=== PATIENT | female | born 1995 | race Caucasian/White ===

== ENCOUNTER → 2016-09-17 | Outpatient (CLI) | payer OTHER ==
[~2016-09-17] MED LIST: ACID REDUCER 1150 MG PO; BIRTH CONTROL; IBU800 M1 PO
[2016-09-17 14:07] LABS: BASO % 0.3 % (0.0-1.0); EOS # 0.3 10*3/uL (0.0-0.4); EOS % 2.4 % (1.0-4.0); HEMATOCRIT 37.8 % (37.0-47.0); HEMOGLOBIN 12.4 g/dl (12.0-16.0); LYMPH # 3.4 10*3/uL (1.3-4.4); LYMPH % 28.3 % (27.0-41.0); MEAN CELL VOLUME 86.7 fl (81.0-99.0); MEAN CORPUSCULAR HGB 28.4 pg (27.0-31.0); MEAN CORPUSCULAR HGB CONC 32.8 g/dl (33.0-37.0); MEAN PLATELET VOLUME 9.6 fl (9.6-12.3); MONO # 0.5 10*3/uL (0.1-1.0); MONO % 3.8 % (3.0-9.0); NEUT # 7.8 10*3/uL (2.3-7.9); NEUT % 64.9 % (47.0-73.0); PLATELET COUNT AUTOMATED 272 10*3/uL (130-400); RED BLOOD COUNT 4.36 10*6/uL (4.10-5.10); RED CELL DISTRI WIDTH 14.4 % (0-14.5)
[2016-09-17 14:26] LABS: INTERNATIONAL NORM RATIO 0.9 (2.0-3.5); PROTHROMBIN TIME 9.8 SECONDS (9.0-12.4)
== END | disposition home or self-care (01) ==
LOC: LAB 12:37 → EDBD 12:37
PROVIDERS: Specialist
DX: J35.1 Hypertrophy of tonsils (principal)

== ENCOUNTER → 2016-09-24 | Day surgery (SDC) | payer OTHER ==
[~2016-09-24] VITALS: Ht 165.1 cm; Wt 128.4 kg
[~2016-09-24] MED LIST changes: +PERCOCET 325 MG1 TAB PO
--- NOTE | ~2016-09-24 | O ---
[place], [place] OPERATIVE NOTE NAME: NESTOR OCAMPO UNIT #: [id number] ROOM: DOCTOR: DYLAN NOVAK MD BIRTHDATE: [birth year] DATE: 09/24/16 PREOPERATIVE DIAGNOSIS: Chronic tonsillitis. POSTOPERATIVE DIAGNOSIS: Chronic tonsillitis. OPERATION PERFORMED: Bilateral tonsillectomy. SURGEON: Dr. Novak. ANESTHESIA: General endotracheal. OPERATIVE PROCEDURE: Following induction of general endotracheal anesthesia, the patient was positioned supine on the OR table and draped in the standard fashion for tonsillectomy. The mouth was exposed using McIvor retractor. Bilateral tonsillectomy was performed with electrocautery. Minor bleeding was controlled with cautery. At the end of the case, all instrument and sponge counts were correct. Gastric contents were decompressed. The patient was awakened, extubated and transported to PACU in satisfactory condition. DYLAN NOVAK MD CM:OPRECORD:OPERATIVE NOTE [id number] DYLAN NOVAK MD 09/30/16 0930 [email or web address] [email or web address]
[2016-09-24 10:25] VITALS: BP 117/64
[2016-09-24 12:14] VITALS: BP 98/49
[2016-09-24 12:28] VITALS: BP 97/47
[2016-09-24 12:45] VITALS: BP 101/52
[2016-09-24 13:00] VITALS: BP 103/58
[2016-09-24 13:36] VITALS: BP 105/59
== END | disposition home or self-care (01) ==
LOC: SDC 09-17 12:30 → EDBD 12:30 → SDC 13:00
DX: J35.01 Chronic tonsillitis (principal); K21.9 Gastro-esophageal reflux disease without esophagitis; F32.9 Major depressive disorder, single episode, unspecified; F17.210 Nicotine dependence, cigarettes, uncomplicated; Z80.9 Family history of malignant neoplasm, unspecified; Z83.3 Family history of diabetes mellitus; Z82.49 Family history of ischemic heart disease and other diseases of the circulatory system